=== PATIENT | male | born 1985 | race Caucasian/White ===

== ENCOUNTER 2017-10-12 08:13 | Emergency (ER) | payer SELFPAY ==
--- NOTE | 2017-10-12 08:33 | ER ---
Nurse's Notes [facility] Name: Darvin Cardenas Age: 31 yrs Sex: Male : 1985 Arrival Date: 10/12/2017 Time: 08:15 Bed Waiting Private MD: Mayra, None Diagnosis: Presentation: 10/12 08:19 Presenting complaint: registration reports that pt left after his mother signed him in, iw pt stated that he was fine and then started walking out of the dept. ED Course: 08:15 Patient arrived in ED. mr 08:15 None, None is Private Physician. mr Administered Medications: No medications were administered Outcome: 08:32 Eloped from waiting room, Time discovered patient gone: October 12, 2017 at 08:19 iw 08:33 Patient left the ED. iw Signatures: Eunice Chowdhury Irene, RN RN iw
== END 2017-10-12 08:33 | disposition left against medical advice (07) ==
LOC: ER 08:13
DX: Z53.21 Procedure and treatment not carried out due to patient leaving prior to being seen by health care provider (principal)
CPT/HCPCS: 99281

== ENCOUNTER 2018-12-17 11:38 | Emergency (ER) | payer SELFPAY ==
--- OUTSIDE RECORDS SUMMARY | 2018-12-17 11:41 | XMS REPORT | Continuity of Care Document ---
:1985 Author Organization [facility] Address [address] [place] [address] Phone Unavailable Care Team Providers Name Role Phone PHYSICIAN, NO Primary Care Physician Unavailable Insurance Providers Guarantor Leora Gomez Address [address] [place] [address] Email NONE Payer Self Pay Insurance Subscriber's Name Leora Gomez Relationship Self / Same As Patient Group Number NA Group Name NA Advance Directives Directive Response Recorded Date/Time Advance Directive on File No 03/09/18 6:40pm Name of Surrogate/Decision Maker N/A 03/09/18 11:14pm Patient/Family Given Education N - PT UNABLE TO SIGN...AG 03/09/18 11:14pm Material R/T Directives? Problems No problem information available. Medications No medication information available. Social History Social History Problem Response Recorded Date/Time Onset Date Status Hx Physical Abuse No 03/09/2018 6:40pm Not Applicable Not Applicable Smoking Status Start Date Stop Date Current every day smoker Hospital Discharge Instructions No hospital discharge instruction information available. Plan of Care Discharge Date 03/10/18 1:50pm Forms Provided Portal Welcome Letter Prescriptions See Medication Section Referrals NO PHYSICIAN Functional Status No functional status information available. Allergies, Adverse Reactions, Alerts Allergen Type Severity Reaction Status Last Updated Penicillins ([id number]) Allergy Unknown Active 03/10/18 Immunizations No immunization information available. Vital Signs Acute Vital Signs Vital Response Date/Time Blood Pressure 140/89 mm Hg 03/10/2018 10:51am Pulse Pulse Rate (adult) 89 beats per minute (60 - 100) 03/10/2018 10:51am Respiratory Rate 18 breaths per minute (10 - 24) 03/10/2018 10:51am Temperature Source Tympanic 03/10/2018 10:51am Height 6 ft 4 in 03/09/2018 6:40pm Weight 180 lb 03/09/2018 6:40pm Body Mass Index 21.9 kg/m^2 03/09/2018 6:40pm Results Laboratory Results Test Name Result Units Flags Reference Collection Result Comments Date/Time Date/Time White Blood 5.6 K/ul 4.0-12.3 03/09/2018 03/09/2018 Count 7:20pm 7:36pm Red Blood 5.44 M/ul 3.80-5.80 03/09/2018 03/09/2018 Count 7:20pm 7:36pm Hemoglobin 16.8 g/dl 11.67-17.2 03/09/2018 03/09/2018 2 7:20pm 7:36pm Hematocrit 50.3 % 35.0-51.0 03/09/2018 03/09/2018 7:20pm 7:36pm Mean 92.5 fl 78-96 03/09/2018 03/09/2018 Corpuscular 7:20pm 7:36pm Volume Mean 30.9 pg 26.8-33.4 03/09/2018 03/09/2018 Corpuscular 7:20pm 7:36pm Hemoglobin Mean 33.4 g/dl 32.3-36.7 03/09/2018 03/09/2018 Corpuscular 7:20pm 7:36pm Hemoglobin Concent Red Cell 12.0 % 11.6-15.4 03/09/2018 03/09/2018 Distribution 7:20pm 7:36pm Width Platelet Count 240 K/ul 115-328 03/09/2018 03/09/2018 7:20pm 7:36pm Mean Platelet 6.6 fl L 8.4-11.8 03/09/2018 03/09/2018 Volume 7:20pm 7:36pm Neutrophils 46.8 % 44.7-82.4 03/09/2018 03/09/2018 (%) (Auto) 7:20pm 7:36pm Lymphocytes 43.1 % 10.0-50.0 03/09/2018 03/09/2018 (%) (Auto) 7:20pm 7:36pm Monocytes (%) 7.1 % 3.9-13.4 03/09/2018 03/09/2018 (Auto) 7:20pm 7:36pm Eosinophils 2.2 % 0.0-6.43 03/09/2018 03/09/2018 (%) (Auto) 7:20pm 7:36pm Basophils (%) 0.8 % H 0.0-0.72 03/09/2018 03/09/2018 (Auto) 7:20pm 7:36pm Prothrombin 10.3 SECONDS 10.3-12.3 03/09/2018 03/09/2018 Time 7:20pm 7:40pm THERAPEUTIC LEVEL: 1.5 to 1.9 times normal range of PT Prothromb Time 0.93 03/09/2018 03/09/2018 International 7:20pm 7:40pm Recommended therapeutic range for patients receiving Ratio warfarin (coumadin) therapy: INR is 2.0 to 3.0 Recommended range for patients with mechanical prosthetic heart valves: INR is 2.5 to 3.5 Activated 25.1 SECONDS 22.5-37.0 03/09/2018 03/09/2018 Partial 7:20pm 7:40pm Thromboplast Time Urine Color COLORLESS 03/09/2018 03/09/2018 9:00pm 9:17pm Urine CLEAR CLEAR 03/09/2018 03/09/2018 Appearance 9:00pm 9:17pm Urine Glucose NEGATIVE NEGATIVE 03/09/2018 03/09/2018 9:00pm 9:17pm Urine NEGATIVE NEGATIVE 03/09/2018 03/09/2018 Bilirubin 9:00pm 9:17pm Urine Ketones NEGATIVE NEGATIVE 03/09/2018 03/09/2018 9:00pm 9:17pm Urine Specific 1.005 1.003-1.03 03/09/2018 03/09/2018 [place] 0 9:00pm 9:17pm Urine Blood NEGATIVE NEGATIVE 03/09/2018 03/09/2018 9:00pm 9:17pm Urine pH 7.000 5-9 03/09/2018 03/09/2018 9:00pm 9:17pm Urine Protein NEGATIVE NEGATIVE 03/09/2018 03/09/2018 9:00pm 9:17pm Urine NORMAL mg/dL 0.2-1.0 03/09/2018 03/09/2018 Urobilinogen 9:00pm 9:17pm Urine Nitrate NEGATIVE NEGATIVE 03/09/2018 03/09/2018 9:00pm 9:17pm Urine NEGATIVE NEGATIVE 03/09/2018 03/09/2018 Leukocyte 9:00pm 9:17pm Esterase Urine RBC <1 /hpf 0-5 03/09/2018 03/09/2018 9:00pm 9:17pm Urine WBC <1 /hpf 0-5 03/09/2018 03/09/2018 9:00pm 9:17pm Urine <1 /hpf 0-5 03/09/2018 03/09/2018 Epithelial 9:00pm 9:17pm Cells Urine Bacteria None /hpf None 03/09/2018 03/09/2018 Detected Detect 9:00pm 9:17pm Urine Casts None /lpf None 03/09/2018 03/09/2018 Detected Detect 9:00pm 9:17pm Urine Culture NO 03/09/2018 03/09/2018 Reflexed 9:00pm 9:17pm Random Glucose 101 mg/dL 74-106 03/09/2018 03/09/2018 7:20pm 7:45pm Blood Urea 3 mg/dL L 11-0703/09/2018 03/09/2018 Nitrogen 7:20pm 7:45pm Serum 285 280-300 03/09/2018 03/09/2018 Osmolality 7:20pm 7:45pm Creatinine 0.8 mg/dL 0.70-1.20 03/09/2018 03/09/2018 7:20pm 7:45pm Glomerular > 60.00 03/09/2018 03/09/2018 GFR RESULTS ARE REPORTED IN mL/min/1.73m2. Filtration 7:20pm 7:45pm Rate Calc Normal GFR: >60mL/min Moderately decreased GFR: 30-59 mL/min Severely decreased GFR: 15-29 mL/min Kidney Failure (or Dialysis): <15 mL/min The calculated eGFR is not valid for patients younger than 18 years or older than 75 years. BUN/Creatinine 3.8 L 05-0903/09/2018 03/09/2018 Ratio 7:20pm 7:45pm Sodium Level 145 mmol/L 135-145 03/09/2018 03/09/2018 7:20pm 7:45pm Potassium 4.0 mmol/L 3.5-5.2 03/09/2018 03/09/2018 Level 7:20pm 7:45pm Chloride Level 104 mmol/L 98-108 03/09/2018 03/09/2018 7:20pm 7:45pm Carbon Dioxide 25 mmol/L 21-32 03/09/2018 03/09/2018 Level 7:20pm 7:45pm Anion Gap 20.0 mEq/L 12-03/09/2018 03/09/2018 7:20pm 7:45pm Calcium Level 9.1 mg/dL 8.6-10.0 03/09/2018 03/09/2018 7:20pm 7:45pm Total Protein 7.8 g/dL 6.6-8.7 03/09/2018 03/09/2018 7:20pm 7:45pm Albumin 4.7 g/dL 3.5-5.2 03/09/2018 03/09/2018 7:20pm 7:45pm Globulin 3.1 gm/dL 03/09/2018 03/09/2018 7:20pm 7:45pm Albumin/Globul 1.5 >1.0 03/09/2018 03/09/2018 in Ratio 7:20pm 7:45pm Total 0.4 mg/dL 0.0-1.2 03/09/2018 03/09/2018 Bilirubin 7:20pm 7:45pm Aspartate 29 U/L 15-40 03/09/2018 03/09/2018 Amino Transf 7:20pm 7:45pm (AST/SGOT) Alanine 21 U/L 0-41 03/09/2018 03/09/2018 Aminotransfera 7:20pm 7:45pm se (ALT/SGPT) Total Alkaline 93 U/L 40-130 03/09/2018 03/09/2018 Phosphatase 7:20pm 7:45pm Urine NEGATIVE NG/ML NEGATIVE 03/09/2018 03/09/2018 Amphetamines 9:00pm 9:30pm Screen Urine NEGATIVE NG/ML NEGATIVE 03/09/2018 03/09/2018 Barbiturates, 9:00pm 9:30pm Quantitative Urine NEGATIVE NG/ML NEGATIVE 03/09/2018 03/09/2018 Benzodiazepine 9:00pm 9:30pm s Screen Urine NEGATIVE NG/ML NEGATIVE 03/09/2018 03/09/2018 Cannabinoids 9:00pm 9:30pm Urine Cocaine NEGATIVE NG/ML NEGATIVE 03/09/2018 03/09/2018 Metabolite 9:00pm 9:30pm Urine Opiates NEGATIVE NG/ML NEGATIVE 03/09/2018 03/09/2018 Screen 9:00pm 9:30pm Urine NEGATIVE NG/ML NEGATIVE 03/09/2018 03/09/2018 Phencyclidine 9:00pm 9:30pm (PCP) Level Methadone NEGATIVE NG/ML NEGATIVE 03/09/2018 03/09/2018 Level 9:00pm 9:30pm Propoxyphene NEGATIVE NG/ML NEGATIVE 03/09/2018 03/09/2018 Level 9:00pm 9:30pm Oxycodone NEGATIVE NG/ML NEGATIVE 03/09/2018 03/09/2018 Level 9:00pm 9:30pm Urine Drug . 03/09/2018 03/09/2018 DRUGS OF ABUSE CUT-OFF VALUES Screen Note 9:00pm 9:05pm AMPHETAMINES (AMPH) NEGATIVE (CUT OFF CONC: 1000 NG/ML) BARBITUATES (IGOR) NEGATIVE (CUT OFF CONC: 200 NG/ML) BENZODIAZEPINES (MANNY) NEGATIVE (CUT OFF CONC: 300 NG/ML) CANNABINOIDS (THC) NEGATIVE (CUT OFF CONC: 50 NG/ML) COCAINE (MIKO) NEGATIVE (CUT OFF CONC: 300 NG/ML) OPIATES (OPI) NEGATIVE (CUT OFF CONC: 300 NG/ML) PHENCYCLIDINE (PCP) NEGATIVE (CUT OFF CONC: 25 NG/ML)METHADONE (MTD) NEGATIVE (CUT OFF CONC: 300 NG/ML) PROPOXYPHENE (PPX) NEGATIVE (CUT OFF CONC: 300 NG/ML) OXYCODONE (OXY) NEGATIVE (CUT OFF CONC: 100 NG/ML) ANY POSITIVE RESULT IS UNCONFIRMED. CONFIRMATION AND QUANTITATION AVAILABLE UPON MD REQUEST. Salicylates < 0.4 mg/dl L 2.8-20.0 03/10/2018 03/10/2018 Level 12:05am 12:34am Acetaminophen < 5.0 ug/mL L 10.0-30.0 03/10/2018 03/10/2018 Level 12:05am 12:34am Ethyl Alcohol 59.3 mg/dL H 0.0-10.1 03/10/2018 03/10/2018 Level 6:34am 6:53am Procedures Procedure Status Date Provider(s) X-ray of chest, single view Completed 03/09/18 CHEL MCGHEE [employer] Encounters Encounter Location Arrival/Admit Date Discharge/Depart Date Attending Provider Departed Jose Eduardo 03/09/18 6:40pm 03/10/18 1:50pm Loki MEADOWS Emergency Room [facility]
[2018-12-17] MEDS ORDERED: DIAZEPAM 10 MG/2 ML INJ SYRINGE ONE (12:13)
[2018-12-17] MEDS ORDERED: NA CHLORIDE 0.9% 1,000 ML ONE (12:13)
[2018-12-17] MEDS ORDERED: ONDANSETRON 4 MG/2 ML VIAL ONE (12:14)
[2018-12-17 12:15] LABS: Absolute Lymphocytes (CBC) 2.1 K/uL (0.7-4.9); Basophils % 0.4 % (0-1.3); Hematocrit 48.2 % (39.6-49.0); Lymphocytes % 20.6 % (15.3-44.8); MPV 9.2 fL (7.6-11.3); RBC Red Blood Cell Count 5.27 M/uL (4.33-5.43)
[2018-12-17 12:42] LABS: Potassium 3.4 mmol/L (3.5-5.1)
--- NOTE | 2018-12-17 13:18 | RAD REPORT ---
EXAM DESCRIPTION: CTAbdomen Pelvis W Contrast - 12/17/2018 1:06 pm CLINICAL HISTORY: Abdominal pain. vomiting, abd pain COMPARISON: No comparisons TECHNIQUE: Biphasic CT imaging of the abdomen and pelvis was performed with 100 ml non-ionic IV cont rast. All CT scans are performed using dose optimization technique as appropriate and may include automated exposure control or mA/KV adjustment according to patient size. FINDINGS: The lung bases are clear. The liver, spleen, pancreas, adrenal glands and kidneys are within normal limits. Small cortical cyst left kidney, benign in appearance. No bowel obstruction, free air, free fluid or abscess. The appendix is normal. No evidence of signi ficant lymphadenopathy. No suspicious bony findings. IMPRESSION: No acute intra-abdominal or pelvic finding.
[2018-12-17] MEDS ORDERED: FOLIC ACID 1 MG, THIAMINE HCL 100 MG, MULTIVITAMINS INJ 10 ML in NA CHLORIDE 0.9% 1,000 ML IV ONE (13:30)
[2018-12-17] MEDS ORDERED: POTASSIUM CL SA 10 MEQ TAB PO ONE (13:33)
--- NOTE | 2018-12-17 13:44 | ER ---
Nurse's Notes [facility] Name: Darvin Cardenas Age: 33 yrs Sex: Male : 1985 Arrival Date: 12/17/2018 Time: 11:39 Bed 3 Private MD: None, None Diagnosis: Vomiting, unspecified;Alcohol dependence with withdrawal, unspecified Presentation: 12/17 11:51 Presenting complaint: Patient states: "I'm detoxing off alcohol", pt states he's been iw on a heavy binge X 1 week, has been drinking 4 Lokos, initially stated he stopped drinking a day ago, but then stated he had a drink today, pt actively vomiting, denies chronic alcohol use, denies drug use. Transition of care: patient was not received from another setting of care. Onset of symptoms was December 17, 2018. Risk Assessment: Do you want to hurt yourself or someone else? Patient reports no desire to harm self or others. Initial Sepsis Screen: Does the patient meet any 2 criteria? No. Patient's initial sepsis screen is negative. Does the patient have a suspected source of infection? No. Patient's initial sepsis screen is negative. Care prior to arrival: None. 11:51 Method Of Arrival: Wheelchair iw 11:51 Acuity: ARTHUR 3 iw Historical: - Allergies: 11:41 PENICILLINS; tw2 - Immunization history:: Adult Immunizations unknown. - Ebola Screening: : Patient denies travel to an Ebola-affected area in the 21 days before illness onset. - Social history:: Smoking status: Patient uses tobacco products, smokes one pack cigarettes per day. Patient uses alcohol, on a daily basis. patient/guardian reports recent binge of alcohol consumption. - Family history:: not pertinent. - Hospitalizations: : No recent hospitalization is reported. Screenin:41 Abuse screen: Denies threats or abuse. Nutritional screening: No deficits noted. tw2 Tuberculosis screening: No symptoms or risk factors identified. Fall Risk None identified. Assessment: 11:42 General: Appears in no apparent distress. slender, Behavior is anxious. Pain: Denies tw2 pain. Neuro: Level of Consciousness is awake, alert, obeys commands, Oriented to person, place, time, situation. Cardiovascular: Heart tones S1 S2 Patient's skin is warm and dry. Respiratory: Airway is patent Respiratory effort is even, unlabored, Respiratory pattern is regular, symmetrical, Breath sounds are clear bilaterally. GI: Reports nausea. : No signs and/or symptoms were reported regarding the genitourinary system. EENT: No signs and/or symptoms were reported regarding the EENT system. Derm: No signs and/or symptoms reported regarding the dermatologic system. Musculoskeletal: Range of motion: intact in all extremities. 12:35 Reassessment: Patient appears in no apparent distress at this time. No changes from tw2 previously documented assessment. Patient and/or family updated on plan of care and expected duration. Pain level reassessed. Vital Signs: 11:59 BP 124 / 84; Pulse 76; Resp 16; Temp 98.0(O); Pulse Ox 98% on R/A; iw 12:05 Weight 54.43 kg; Height 6 ft. 0 in. (182.88 cm) (R); tw2 12:34 BP 122 / 80; Pulse 82; Resp 12; Pulse Ox 99% on R/A; tw2 13:31 BP 118 / 89; Pulse 60; Resp 17; Pulse Ox 100% on R/A; sg 14:24 BP 115 / 78; Pulse 57; Resp 17; Pulse Ox 100% on R/A; sg 15:01 BP 106 / 72; Pulse 67; Resp 15; Temp 98; Pulse Ox 99% on R/A; rv 12:05 Body Mass Index 16.27 (54.43 kg, 182.88 cm) tw2 ED Course: 11:39 Patient arrived in ED. dp 11:40 None, None is Private Physician. dp 11:41 Nancy Choudhary RN is Primary Nurse. tw2 11:42 Andrea Avila MD is Attending Physician. rn 11:42 Placed in gown. Bed in low position. desk monitor on. Pulse ox on. NIBP on. tw2 11:53 Triage completed. iw 12:03 Arm band placed on. tw2 12:45 Warm blanket given. Verbal reassurance given. jp3 12:45 EKG done, by ED staff, reviewed by Andrea Avila MD. jp3 12:45 Patient maintains SpO2 saturation greater than 95% on room air. jp3 13:09 CT Abd/Pelvis - IV Contrast Only In Process Unspecified. EDMS 13:54 Report given to ALEC Garcia. tw2 15:02 No provider procedures requiring assistance completed. IV discontinued, intact, rv bleeding controlled, No redness/swelling at site. Pressure dressing applied. Administered Medications: 12:00 Drug: NS 0.9% 1000 ml Route: IV; Rate: 1000 ml; Site: right forearm; tw2 13:12 Follow up: Response: No adverse reaction; IV Status: Completed infusion; IV Intake: tw2 1000ml 12:00 Drug: Zofran 4 mg Route: IVP; Site: right forearm; tw2 12:15 Follow up: Response: No adverse reaction tw2 12:03 Drug: Valium 10 mg Route: IVP; Site: right forearm; tw2 13:12 Follow up: Response: No adverse reaction; Anxiety decreased tw2 12:50 Drug: Phenergan 12.5 mg Route: IVP; Site: right antecubital; tw2 15:02 Follow up: Response: No adverse reaction; Marked relief of symptoms; Nausea is decreasedrv 13:16 Drug: Potassium Chloride 40 mEq Route: PO; tw2 13:16 Follow up: Response: No adverse reaction tw2 13:31 Drug: Banana Bag - (NS 0.9% 1000 ml, foLIC Acid 1 mg, Thiamine 100 mg, Multivitamin 1 sg amp) Route: IV; Rate: calculated rate; Site: right forearm; 15:02 Follow up: IV Status: Completed infusion rv Intake: 13:12 IV: 1000ml; Total: 1000ml. tw2 Outcome: 13:42 Discharge ordered by . rn 15:03 Discharged to home ambulatory. rv 15:03 Condition: improved 15:03 Discharge instructions given to patient, Instructed on discharge instructions, follow up and referral plans. medication usage, instructed patient to call a ride upon discharge. patient taken to patient's lobby/waiting area. Demonstrated understanding of instructions, follow-up care, medications, Prescriptions given X 1. 15:04 Patient left the ED. rv Signatures: Dispatcher [employer] EDCj Almaraz RN RN sg Williams, Irene, RN RN iw Nieto, Roman, MD MD rn Wise, Tara, RN RN tw2 Uziel Butler RN RN rv Kannan Villela jp3 Jean Carlos Mak
--- NOTE | 2018-12-17 13:44 | EDPHYS ---
Physician Documentation [facility] Name: Darvin Cardenas Age: 33 yrs Sex: Male : 1985 Arrival Date: 12/17/2018 Time: 11:39 Bed 3 Private MD: None, None ED Physician Andrea Avila HPI: 12/17 12:25 This 33 yrs old Male presents to ER via Wheelchair with complaints of Alcohol rn Withdrawal. 12:25 The patient presents to the emergency department with nausea, vomiting. Onset: The rn symptoms/episode began/occurred at an unknown time. Possible causes: unknown. The symptoms are aggravated by nothing. The symptoms are alleviated by nothing. Associated signs and symptoms: Pertinent positives: nausea, vomiting, Pertinent negatives: fever, GI bleeding. Severity of symptoms: At their worst the symptoms were moderate in the emergency department the symptoms are unchanged. The patient has not experienced similar symptoms in the past. Reports thinks is withdrawing from ETOH, reports was heavy drinker, was sober, then went on 2 week binge, last drink today after felt bad but didn't help, last full day of drinking was about 1 week ago, also used cocaine yesterday, comes in for nausea/vomiting/weakness.. Historical: - Allergies: 11:41 PENICILLINS; tw2 - Immunization history:: Adult Immunizations unknown. - Ebola Screening: : Patient denies travel to an Ebola-affected area in the 21 days before illness onset. - Social history:: Smoking status: Patient uses tobacco products, smokes one pack cigarettes per day. Patient uses alcohol, on a daily basis. patient/guardian reports recent binge of alcohol consumption. - Family history:: not pertinent. - Hospitalizations: : No recent hospitalization is reported. ROS: 12:27 Constitutional: Negative for fever, chills, and weight loss, Eyes: Negative for injury, rn pain, redness, and discharge, Neck: Negative for injury, pain, and swelling, Cardiovascular: Negative for chest pain, palpitations, and edema, Respiratory: Negative for shortness of breath, cough, wheezing, and pleuritic chest pain, Abdomen/GI: Negative for diarrhea, and constipation, MS/Extremity: Negative for injury and deformity, Skin: Negative for injury, rash, and discoloration, Neuro: Negative for headache, numbness, tingling, and seizure. Exam: 12:27 Constitutional: This is a well developed, well nourished patient who is awake, alert, rn wretching Head/Face: Normocephalic, atraumatic. Eyes: Pupils equal round and reactive to light, extra-ocular motions intact. Lids and lashes normal. Conjunctiva and sclera are non-icteric and not injected. Cornea within normal limits. Periorbital areas with no swelling, redness, or edema. Neck: Trachea midline, no thyromegaly or masses palpated, and no cervical lymphadenopathy. Supple, full range of motion without nuchal rigidity, or vertebral point tenderness. No Meningismus. Cardiovascular: Regular rate and rhythm with a normal S1 and S2. No gallops, murmurs, or rubs. Normal PMI, no JVD. No pulse deficits. Respiratory: Lungs have equal breath sounds bilaterally, clear to auscultation and percussion. No rales, rhonchi or wheezes noted. No increased work of breathing, no retractions or nasal flaring. Abdomen/GI: soft, non-tender MS/ Extremity: Pulses equal, no cyanosis. Neurovascular intact. Full, normal range of motion. Equal circumference. Neuro: Awake and alert, GCS 15, oriented to person, place, time, and situation. Cranial nerves II-XII grossly intact. Motor strength 5/5 in all extremities. Sensory grossly intact. Cerebellar exam normal. 13:24 ECG was reviewed by the Attending Physician. rn Vital Signs: 11:59 BP 124 / 84; Pulse 76; Resp 16; Temp 98.0(O); Pulse Ox 98% on R/A; iw 12:05 Weight 54.43 kg; Height 6 ft. 0 in. (182.88 cm) (R); tw2 12:34 BP 122 / 80; Pulse 82; Resp 12; Pulse Ox 99% on R/A; tw2 13:31 BP 118 / 89; Pulse 60; Resp 17; Pulse Ox 100% on R/A; sg 14:24 BP 115 / 78; Pulse 57; Resp 17; Pulse Ox 100% on R/A; sg 15:01 BP 106 / 72; Pulse 67; Resp 15; Temp 98; Pulse Ox 99% on R/A; rv 12:05 Body Mass Index 16.27 (54.43 kg, 182.88 cm) tw2 MDM: 11:42 Patient medically screened. rn 13:40 Differential diagnosis: viral gastroenteritis, gastroenteritis, ETOH withdrawal, drug rn use, dehydration. Data reviewed: vital signs, nurses notes, lab test result(s), EKG, radiologic studies, CT scan, and as a result, I will discharge patient. Counseling: I had a detailed discussion with the patient and/or guardian regarding: the historical points, exam findings, and any diagnostic results supporting the discharge/admit diagnosis, lab results, radiology results, the need for outpatient follow up, to return to the emergency department if symptoms worsen or persist or if there are any questions or concerns that arise at home. Response to treatment: the patient's symptoms have markedly improved after treatment, and as a result, I will discharge patient. Special discussion: I discussed with the patient/guardian in detail that at this point there is no indication for admission to the hospital. It is understood, however, that if the symptoms persist or worsen the patient needs to return immediately for re-evaluation. ED course: Patient with normal vitals, neg ct abdomen, markedly improved with fluids and valium, no acute findings, ETOH actually > 300, plans on quitting, will prescribe librium and dc home with recommendations to slowly wean himself off ETOH or check into detox facility, also recommended to stop using stimulant drugs like cocaine when detox. Patient sitting upright, using phone, normal neuro exam. . 12/17 11:50 Order name: CBC with Diff; Complete Time: 13: rn 12/17 11:50 Order name: Basic Metabolic Panel; Complete Time: 13: rn 12/17 11:50 Order name: ETOH Level; Complete Time: 13: rn 12/17 11:50 Order name: Urine Drug Screen rn 12/17 11:51 Order name: CT Abd/Pelvis - IV Contrast Only; Complete Time: 13:23 rn 12/17 11:50 Order name: IV Start; Complete Time: 11:53 rn 12/17 11:50 Order name: EKG - Nurse/Tech; Complete Time: 12:45 rn 12/17 11:50 Order name: EKG; Complete Time: 11:53 rn EC:24 Rate is 76 beats/min. Rhythm is regular. QRS [place] is Normal. OR interval is normal. QRS rn interval is normal. QT interval is normal. No Q waves. T waves are Normal. No ST changes noted. Clinical impression: Normal ECG. Interpreted by me. Reviewed by me. Administered Medications: 12:00 Drug: NS 0.9% 1000 ml Route: IV; Rate: 1000 ml; Site: right forearm; tw2 13:12 Follow up: Response: No adverse reaction; IV Status: Completed infusion; IV Intake: tw2 1000ml 12:00 Drug: Zofran 4 mg Route: IVP; Site: right forearm; tw2 12:15 Follow up: Response: No adverse reaction tw2 12:03 Drug: Valium 10 mg Route: IVP; Site: right forearm; tw2 13:12 Follow up: Response: No adverse reaction; Anxiety decreased tw2 12:50 Drug: Phenergan 12.5 mg Route: IVP; Site: right antecubital; tw2 15:02 Follow up: Response: No adverse reaction; Marked relief of symptoms; Nausea is decreasedrv 13:16 Drug: Potassium Chloride 40 mEq Route: PO; tw2 13:16 Follow up: Response: No adverse reaction tw2 13:31 Drug: Banana Bag - (NS 0.9% 1000 ml, foLIC Acid 1 mg, Thiamine 100 mg, Multivitamin 1 sg amp) Route: IV; Rate: calculated rate; Site: right forearm; 15:02 Follow up: IV Status: Completed infusion rv Disposition: 12/17/18 13:42 Discharged to Home. Impression: Vomiting, unspecified, Alcohol dependence with withdrawal, unspecified. - Condition is Stable. - Discharge Instructions: Finding Treatment for Addiction, Alcohol Withdrawal. - Prescriptions for Zofran ODT 4 mg Oral tablet,disintegrating - place 1 tablet by TRANSLINGUAL route every 8 hours As needed; 20 tablet. Valium 2 mg Oral Tablet - take 1 tablet by ORAL route every 8 hours As needed; 15 tablet. - Medication Reconciliation Form, Thank You Letter, Antibiotic Education, Prescription Opioid Use form. - Follow up: Private Physician; When: As needed; Reason: Recheck today's complaints, Re-evaluation by your physician. - Problem is new. - Symptoms have improved. Signatures: Dispatcher [employer] EDMS Cj Bai RN RN sg Andrea Avila MD MD rn Wise, Tara, RN RN tw2 Uziel Butler RN RN rv Corrections: (The following items were deleted from the chart) 15:04 13:42 12/17/2018 13:42 Discharged to Home. Impression: Vomiting, unspecified; Alcohol rv dependence with withdrawal, unspecified. Condition is Stable. Forms are Medication Reconciliation Form, Thank You Letter, Antibiotic Education, Prescription Opioid Use. Follow up: Private Physician; When: As needed; Reason: Recheck today's complaints, Re-evaluation by your physician. Problem is new. Symptoms have improved. rn
[2018-12-17 13:55] LABS: Barbiturates NEGATIVE (NEGATIVE); Benzodiazepines NEGATIVE (NEGATIVE); Cocaine POSITIVE (NEGATIVE); METHAMPHETAM NEGATIVE (NEGATIVE); Methadone NEGATIVE (NEGATIVE); Opiates NEGATIVE (NEGATIVE); Phencyclidine NEGATIVE (NEGATIVE); THC Cannibis POSITIVE (NEGATIVE)
[2018-12-17] MEDS ORDERED: PROMETHAZINE 25 MG/ML VIAL ONE (14:04)
--- NOTE | 2018-12-18 10:52 | EKG ---
Test Date: 2018-12-17 Test Time: 12:44:59 Channeling Machine Runner: KYLIE MEASUREMENT RESULTS: Intervals: Rate: 76 ND: 142 QRSD: 106 QT: 420 QTc: 472 Anderson: P: 82 ND: 142 QRS: 80 T: 77 INTERPRETIVE STATEMENTS: Normal sinus rhythm Normal ECG Compared to ECG 07/18/2016 15:51:04 Sinus tachycardia no longer present Electronically Signed On 12-18-18 10:51:22 CDT by Andrea Langley
== END 2018-12-17 15:04 | disposition home or self-care (01) ==
LOC: ER 11:38
DX: F10.239 Alcohol dependence with withdrawal, unspecified (principal); R11.2 Nausea with vomiting, unspecified; Z88.0 Allergy status to penicillin; F17.210 Nicotine dependence, cigarettes, uncomplicated
CPT/HCPCS: 36415; 74177; 80048; 80307; 80320; 85025; 93005; 96361; 96365; 96375; 99285; J2405; J2550; J3360; J3411; J7030; Q9967

== ENCOUNTER 2019-02-01 19:13 | Emergency (ER) | payer SELFPAY ==
[2019-02-01 20:11] LABS: Absolute Lymphocytes (CBC) 1.9 K/uL (0.7-4.9); Basophils % 0.9 % (0-1.3); Hematocrit 39.2 % (39.6-49.0); Lymphocytes % 34.1 % (15.3-44.8); MPV 8.8 fL (7.6-11.3); RBC Red Blood Cell Count 4.32 M/uL (4.33-5.43)
[2019-02-01 20:50] LABS: BUN Blood Urea Nitrogen 19 mg/dL (7-18); Bicarbonate 28 mmol/L (21-32); Glucose Level 95 mg/dL (74-106); Potassium 3.9 mmol/L (3.5-5.1); Sodium Level 141 mmol/L (136-145)
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
[2019-02-01] MEDS ORDERED: NA CHLORIDE 0.9% 1,000 ML ONE (22:46)
[2019-02-01 23:55] LABS: Barbiturates NEGATIVE (NEGATIVE); Benzodiazepines POSITIVE (NEGATIVE); Cocaine POSITIVE (NEGATIVE); METHAMPHETAM POSITIVE (NEGATIVE); Methadone NEGATIVE (NEGATIVE); Opiates POSITIVE (NEGATIVE); Phencyclidine NEGATIVE (NEGATIVE); THC Cannibis POSITIVE (NEGATIVE)
[2019-02-02 01:23] LABS: Urine Blood NEGATIVE (NEG); Urine Glucose NEGATIVE (NEG); Urine Protein TRACE (NEG); Urine Specific Gravity >1.030 (1.005-1.030)
[2019-02-02 01:59] VITALS: TEMP 98
[2019-02-02 02:01] VITALS: BP 116/87; O2SAT 98
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
== END 2019-02-02 01:10 | disposition home or self-care (01) ==
LOC: ER 19:13
DX: T14.8XXA Other injury of unspecified body region, initial encounter (principal); V47.5XXA Car driver injured in collision with fixed or stationary object in traffic accident, initial encounter; F41.9 Anxiety disorder, unspecified; F17.210 Nicotine dependence, cigarettes, uncomplicated; Z88.0 Allergy status to penicillin
CPT/HCPCS: 36415; 70450; 71260; 72125; 74177; 80048; 80307; 80320; 81003; 85025; 86850; 86900; 86901; 96360; 99285; J7030; Q9967

== ENCOUNTER 2022-03-13 18:00 | Emergency (ER) | payer SELFPAY ==
--- OUTSIDE RECORDS SUMMARY | 2022-03-13 18:04 | XMS REPORT | Continuity of Care Document ---
:1985 Author Organization [facility] t Address [address] [place] [address] Care Team Providers Name Role Phone Unavailable Unavailable Unavailable Payers Payer Name Policy Type Policy Number Effective Date Expiration Date S ource Problems This patient has no known problems. Allergies, Adverse Reactions, Alerts This patient has no known allergies or adverse reactions. Medications This patient has no known medications. Procedures This patient has no known procedures. Encounters Start End Encounter Admission Attending Care Care Encounter Source Date/Time Date/Time Type Type Clinicians Facility Department ID 2022-02-03 Inpatient MOISES DE LEON [id number] [place] 08:51:48 [id number] [place] 2022-01-30 Inpatient TEXRADHAMES BACKANA [id number] [place] 10:40:02 [id number] [place] 2022-01-21 Inpatient TEXRADHAMES BACKANA [id number] [place] 18:09:22 [id number] [place] 2022-01-18 Inpatient TEXRADHAMES BACKANA [id number] [place] 17:04:52 [id number] [place] 2022-01-13 Inpatient TEXRADHAMES BACKANA [id number] [place] 10:49:51 [id number] [place] 2022-01-11 Inpatient TEXRADHAMES DE LEON [id number] [place] 23:40:[id number] [place] [address] 2022-01-11 [facility] [id number] [facility] 11:01:23 [id number] [place] Results This patient has no known results.
[2022-03-13] MEDS ORDERED: LORazepam 2 MG/ML VIAL ONE ×4 (19:13→23:25)
[2022-03-13] MEDS ORDERED: NA CHLORIDE 0.9% 500 ML ONE (19:14)
[2022-03-13 19:31] LABS: Absolute Lymphocytes (CBC) 2.5 K/uL (0.7-4.9); Hematocrit 45.3 % (39.6-49.0); Lymphocytes % 45.8 % (15.3-44.8); MCV 90.4 fL (80-100); MPV 8.6 fL (7.6-11.3); RBC Red Blood Cell Count 5.02 M/uL (4.33-5.43)
[2022-03-13 19:39] LABS: Protime INR 0.83
[2022-03-13 19:49] LABS: ALT/SGPT 28 U/L (12-78); AST/SGOT 26 U/L (15-37); Albumin 4.3 g/dL (3.4-5.0); Alkaline Phosphatase 85 U/L (45-117); BUN Blood Urea Nitrogen 13 mg/dL (7-18); Bicarbonate 24 mmol/L (21-32); Bilirubin Direct 0.1 mg/dL (0-0.2); Bilirubin Total 0.3 mg/dL (0.2-1.0); Glomerular Filtration Rate 80 ml/min (=/>90); Glucose Level 119 mg/dL (74-106); Potassium 3.7 mmol/L (3.5-5.1); Protein, Total 8.6 g/dL (6.4-8.2); Sodium Level 141 mmol/L (136-145)
[2022-03-13 19:53] LABS: SARS-CoV-2 Antigen Rapid Res Negative (Negative)
[2022-03-13] MEDS ORDERED: NA CHLORIDE 0.9% 1,000 ML ONE (20:40)
[2022-03-13 22:02] LABS: Urine Blood Negative (Negative); Urine Glucose Negative (Negative); Urine Protein Negative (Negative); Urine Specific Gravity >=1.030 (1.005-1.030); Urine pH 5.5 (5.0-7.0)
[2022-03-13 22:21] LABS: Barbiturates NEGATIVE (NEGATIVE); Benzodiazepines NEGATIVE (NEGATIVE); Cocaine NEGATIVE (NEGATIVE); METHAMPHETAM NEGATIVE (NEGATIVE); Methadone NEGATIVE (NEGATIVE); Opiates NEGATIVE (NEGATIVE); Phencyclidine NEGATIVE (NEGATIVE); THC Cannibis POSITIVE (NEGATIVE)
--- NOTE | 2022-03-13 22:29 | ER ---
Nurse's Notes [facility] Name: Darvin Cardenas Age: 36 yrs Sex: Male : 1985 Arrival Date: 03/13/2022 Time: 18:03 Bed 19 Private MD: Diagnosis: Alcohol abuse with intoxication;Adverse effect of selective serotonin reuptake inhibitors, initial encounter;Adverse effect of phenothiazine antipsychotics and neuroleptics, initial encounter Presentation: 03/13 18:16 Chief complaint: Patient states: took Prozac unsure of dose, olanzapine 5 mg and vg1 mirtazapine 15 mg about an hour ago. Pt appears to be drowsy and stated has drank about two shots of liquor 'everclear'. Pt ADMITS TO SI, stating "im just tired of being here" POISON CONTROL CONTACTED- Spoke paulo Hernández, CASE # [id number]; stated precautions for seizures, hypotension, tachycardia, Respiratory depression, EKG changes- prolong QT, potassium and magnesium. Risk Assessment: Do you want to hurt yourself or someone else? Patient reports desire/thoughts of hurting themselves or someone else. Provider notified. Other: Self. Onset of symptoms was March 13, 2022. 18:16 Method Of Arrival: Ambulatory vg1 18:16 Acuity: ARTHUR 2 vg1 22:00 Coronavirus screen: At this time, the client does not indicate any symptoms associated vc1 with coronavirus-19. Ebola Screen: No symptoms or risks identified at this time. Initial Sepsis Screen: Does the patient have a suspected source of infection? No. Patient's initial sepsis screen is negative. 22:03 Initial Sepsis Screen: Does the patient meet any 2 criteria?. ll3 Triage Assessment: 18:31 General: Appears uncomfortable, slender, Behavior is cooperative, drowsy. Pain: Denies vg1 pain. Neuro: Rawls Agitation-Sedation Scale (RASS): -1 Drowsy Level of Consciousness is awake, alert, obeys commands, Oriented to person, place, time, situation, Pupils are Pupil Size: 2 mm. Cardiovascular: Patient's skin is warm and dry. Respiratory: Airway is patent Respiratory effort is even, shallow. Historical: - Allergies: 18:31 PENICILLINS; vg1 - PMHx: 18:31 Anxiety; vg1 - Immunization history:: unknown. - Social history:: Smoking status: Patient reports the use of cigarette tobacco products, Patient uses alcohol, street drugs, marijuana. Screenin:22 Abuse screen:. Nutritional screening: No deficits noted. Tuberculosis screening: No kl symptoms or risk factors identified. Fall Risk No fall in past 12 months (0 pts). Secondary diagnosis (15 points) AMS. IV access (20 points). Ambulatory Aid- None/Bed Rest/Nurse Assist (0 pts). Gait- Impaired (20 pts.). Mental Status- Overestimates/Forgets Limitations (15 pts.). Total King Fall Scale indicates High Risk Score (45 or more points). Fall prevention measures have been instituted. Side Rails Up X 2 Placed Close to Nursing Station Frequent Obs/Assessments Occuring. Assessment: 19:21 General: Appears distressed, well developed, well nourished, Behavior is anxious, kl restless, requires frequent redirection. Pain: Denies pain. Neuro: Level of Consciousness is awake, alert, obeys commands, Oriented to person, place, time, Speech is slurred, Pupils are pinpoint. Cardiovascular: Capillary refill < 3 seconds Rhythm is sinus tachycardia. Respiratory: No deficits noted. GI: No deficits noted. No signs and/or symptoms were reported involving the gastrointestinal system. : No deficits noted. No signs and/or symptoms were reported regarding the genitourinary system. EENT: No deficits noted. No signs and/or symptoms were reported regarding the EENT system. 20:06 Reassessment: Pt is asleep in bed and is sleeping but extremely restless, and thrashing ll3 around, charge nurse notided, no sitter at this time. Neuro: Rawls Agitation-Sedation Scale (RASS): -3 Moderate Sedation Level of Consciousness is lethargic, Oriented to none. 21:37 Reassessment: No changes from previously documented assessment. Patient and/or family ll3 updated on plan of care and expected duration. Pain level reassessed. 22:54 Reassessment: No changes from previously documented assessment. Patient and/or family ll3 updated on plan of care and expected duration. Pain level reassessed. 23:04 Reassessment: Reassessment: Spoke with [facility] at poison control, they recommend to give 1 ll3 gram of magnesium, to give some potassium if PTs is less than 4, to get more benzo's on board, and to repeat the EKG in 4 hours. 03/14 00:26 Reassessment: No changes from previously documented assessment. Patient and/or family ll3 updated on plan of care and expected duration. Pain level reassessed. Vital Signs: 03/13 18:16 BP 143 / 98; Pulse 113; Resp 15; Temp 98.1; Pulse Ox 97% on R/A; Weight 90.72 kg; vg1 Height 6 ft. 4 in. (193.04 cm); Pain 0/10; 19:22 BP 125 / 75; Pulse 131; Resp 18; Pulse Ox 98% on R/A; kl 20:06 BP 128 / 58; Pulse 158; Resp 28; Pulse Ox 96% on R/A; ll3 21:37 BP 120 / 65; Pulse 130; Resp 24; Pulse Ox 96% on R/A; ll3 22:54 BP 142 / 70; Pulse 140; Resp 25; Temp 98.6(TE); Pulse Ox 96% on R/A; ll3 03/14 00:26 BP 139 / 59; Pulse 147; Resp 27; Pulse Ox 96% on R/A; ll3 03/13 18:16 Body Mass Index 24.34 (90.72 kg, 193.04 cm) vg1 ED Course: 03/13 18:03 Patient arrived in ED. am2 18:11 Chau Arriaga is PHCP. jl9 18:11 Andrea Avila MD is Attending Physician. jl9 18:13 PHCP role handed off by Chau Arriaga cp 18:13 Tray Yee PA is PHCP. cp 18:30 Missed attempt(s): 22 gauge in left antecubital area. Bleeding controlled, band aid ll1 applied, catheter tip intact. 18:31 Triage completed. vg1 18:31 Arm band placed on. vg1 18:31 Missed attempt(s): 22 gauge in right upper arm. Bleeding controlled, band aid applied, ll1 catheter tip intact. 18:37 Eliecer Irizarry, ALEC is Primary Nurse. bp 19:06 Inserted saline lock: 20 gauge in right antecubital area, using aseptic technique. bp Blood collected. 19:24 Placed in gown. Bed in low position. Side rails up X2. Client placed on continuous kl cardiac and pulse oximetry monitoring. NIBP monitoring applied. 19:55 Primary Nurse role handed off by Eliecer Irizarry, ALEC wm 20:45 Placed nasal trumpet 28 Fr via right nare. ll3 21:03 Attending Physician role handed off by Andrea Avila MD ana maría 21:03 Tray Lynn MD is Attending Physician. ana maría 21:46 Celis cath inserted, using sterile technique, 16 Fr., by hi, balloon inflated, to ll3 gravity drainage, clamped. 22:00 Seizure precautions initiated. ll3 22:25 Edvin Lozoya MD is Hospitalizing Provider. cp 22:46 Kaleb Avila MD is Hospitalizing Provider. la1 23:13 Initiated transfer to [facility], spoke with Radha. 03/14 00:00 Pt accepted for transfer by Dr. Christo Gonzalez \\T\\ [id number] 03-13-22 per Radha Diane. wm 00:22 Inserted saline lock: 20 gauge in left hand, using aseptic technique. vc1 00:22 Inserted saline lock: 20 gauge in right forearm, using aseptic technique. vc1 00:50 No provider procedures requiring assistance completed. Patient transferred, IV remains vc1 in place. Administered Medications: 03/13 19:20 Drug: NS 0.9% 1000 ml Route: IV; Rate: 1 bolus; Site: right antecubital; kl 19:20 Drug: Ativan (LORazepam) 0.5 mg Route: IVP; Site: right antecubital; kl 19:55 Drug: Ativan (LORazepam) 1 mg Route: IVP; Site: right forearm; ll3 23:17 Follow up: Response: No adverse reaction ll3 20:41 Drug: NS 0.9% 1000 ml Route: IV; Rate: 1 bolus; Site: right antecubital; ll3 23:16 Follow up: Response: No adverse reaction; IV Status: Completed infusion; IV Intake: ll3 1000ml 21:18 CANCELLED (Physician Discretion): Ativan (LORazepam) 1 mg IVP once cp 21:31 Drug: Ativan (LORazepam) 2 mg Route: IVP; Site: right antecubital; ll3 23:17 Follow up: Response: No adverse reaction ll3 23:11 CANCELLED (Physician Discretion): Magnesium Sulfate 1 grams IVPB once over 1 hrs cp 23:31 Drug: Potassium Chloride 10 mEq Route: IV; Rate: calculated rate; Site: right ll3 antecubital; 23:31 Drug: Ativan (LORazepam) 1 mg Route: IVP; Site: right antecubital; ll3 03/14 00:22 Drug: Ativan (LORazepam) 1 mg Route: IVP; Site: right forearm; ll3 00:25 Drug: Magnesium Sulfate 2 grams Route: IVPB; Infused Over: 2 hrs; Site: right forearm; ll3 Medication: 03/13 22:55 VIS not applicable for this client. ll3 Intake: 23:16 IV: 1000ml; Total: 1000ml. ll3 Outcome: 22:29 Decision to Hospitalize by Provider. cp 03/14 00:26 ER care complete, transfer ordered by . cp 00:51 Transferred by [facility] to [facility], Transfer form completed. [facility] 00:51 Condition: good 01:18 Patient left the ED. ll3 Signatures: Joslyn Claudio RN RN kl Anderson, Corey, MD MD cha Attema, Lee, MANAGER LEGAL-C MANAGER LEGAL-Cla1 Tray Yee, GULSHAN PA cp Stacie Garcia am2 Eliecer Irizarry RN RN bp Garcia, Victoria RN RN vg1 Dre Claudio RN RN ll1 Kerri Riggs Lynsea, RN RN ll3 Nicol Mott RN RN vc1 Chau Arriaga9 Corrections: (The following items were deleted from the chart) 03/13 21:37 21:35 Placed nasal trumpet 28 Fr via right nare. ll3 ll3 23:16 23:04 Reassessment: ll3 ll3
--- NOTE | 2022-03-13 22:30 | EDPHYS ---
Physician Documentation [facility] Name: Darvin Cardenas Age: 36 yrs Sex: Male : 1985 Arrival Date: 03/13/2022 Time: 18:03 Bed 19 Private MD: ED Physician Tray Lynn HPI: 03/13 18:20 This 36 yrs old Male presents to ER via Ambulatory with complaints of ingestion cp olanzapine/mirtazapine. 18:20 The patient presents to the emergency department after a known overdose, that was cp intentional. 18:20 Context: Method: the patient has a confirmed or suspected ingestion, prescribed Prozac cp 45 pills, 45 pills of Remeron and 45 pills of Zyprexa 5mg, Time: 1 hour(s) ago. 18:20 Associated signs and symptoms: Pertinent positives: drinking of alcohol, Pertinent cp negatives: auditory hallucinations, decreased level of consciousness, diarrhea, visual hallucinations, vomiting. 18:20 Patient with recent history of attempted overdose that required hospitalization. cp Historical: - Allergies: 18:31 PENICILLINS; vg1 - PMHx: 18:31 Anxiety; vg1 - Immunization history:: unknown. - Social history:: Smoking status: Patient reports the use of cigarette tobacco products, Patient uses alcohol, street drugs, marijuana. ROS: 18:25 Constitutional: Negative for body aches, chills, fever, poor PO intake. cp 18:25 Eyes: Negative for injury, pain, redness, and discharge. cp 18:25 ENT: Negative for drainage from ear(s), ear pain, sore throat, difficulty swallowing, difficulty handling secretions. 18:25 Cardiovascular: Negative for chest pain. 18:25 Respiratory: Negative for cough, shortness of breath, wheezing. 18:25 Abdomen/GI: Positive for nausea, Negative for vomiting, diarrhea, constipation. 18:25 Neuro: Negative for altered mental status, seizure activity, weakness. 18:25 All other systems are negative. Exam: 18:30 Constitutional: The patient appears in no acute distress, alert, awake, cp non-diaphoretic, non-toxic, well developed, well nourished, smells of alcohol. 18:30 Head/Face: Normocephalic, atraumatic. cp 18:30 Eyes: Periorbital structures: appear normal, Pupils: constricted, bilaterally, Extraocular movements: intact throughout, Conjunctiva: normal, no exudate, no injection, Sclera: no appreciated abnormality, Lids and lashes: appear normal, bilaterally. 18:30 ENT: External ear(s): are unremarkable, Nose: is normal, Mouth: Lips: moist, Oral mucosa: pink and intact, moist, Posterior pharynx: Airway: no evidence of obstruction, patent, erythema, is not appreciated, exudate, is not appreciated. 18:30 Neck: ROM/movement: is normal, is supple, without pain, no range of motions limitations. 18:30 Chest/axilla: Inspection: normal. 18:30 Cardiovascular: Rate: tachycardic, Rhythm: regular, Edema: is not appreciated, JVD: is not appreciated. 18:30 Respiratory: the patient does not display signs of respiratory distress, Respirations: normal, no use of accessory muscles, no retractions, labored breathing, is not present, Breath sounds: are clear throughout, no decreased breath sounds, no stridor, no wheezing. 18:30 Abdomen/GI: Inspection: abdomen appears normal, Bowel sounds: active, all quadrants, Palpation: abdomen is soft and non-tender, in all quadrants. 18:30 Back: pain, is absent, ROM is normal. 18:30 Neuro: Orientation: to person, place \T\ time. Mentation: able to follow commands, slow to respond, Motor: moves all fours, strength is normal, Sensation: is normal. 19:50 ECG was reviewed by the Attending Physician. cp 22:15 ECG was reviewed by the Attending Physician. cp Vital Signs: 18:16 BP 143 / 98; Pulse 113; Resp 15; Temp 98.1; Pulse Ox 97% on R/A; Weight 90.72 kg; vg1 Height 6 ft. 4 in. (193.04 cm); Pain 0/10; 19:22 BP 125 / 75; Pulse 131; Resp 18; Pulse Ox 98% on R/A; kl 20:06 BP 128 / 58; Pulse 158; Resp 28; Pulse Ox 96% on R/A; ll3 21:37 BP 120 / 65; Pulse 130; Resp 24; Pulse Ox 96% on R/A; ll3 22:54 BP 142 / 70; Pulse 140; Resp 25; Temp 98.6(TE); Pulse Ox 96% on R/A; ll3 03/14 00:26 BP 139 / 59; Pulse 147; Resp 27; Pulse Ox 96% on R/A; ll3 03/13 18:16 Body Mass Index 24.34 (90.72 kg, 193.04 cm) vg1 MDM: 03/13 18:11 Patient medically screened. jl9 21:00 Data reviewed: vital signs, nurses notes, lab test result(s), EKG. 21:00 Test interpretation: by ED physician or midlevel provider: ECG. 21:30 Physician consultation: Maulik TINOCO was called at 21:30, after a discussion of the cp case, a recommendation for transfer for higher level of care is made, for ICU bed. 23:48 Physician consultation: was contacted at 23:48, regarding regarding transfer, to [facility]. patient's condition, accepting physician will be DR Christo Gonzalez. 03/13 18:14 Order name: Acetaminophen; Complete Time: 20:27 03/13 18:14 Order name: Basic Metabolic Panel; Complete Time: 20:27 03/13 20:27 Interpretation: Normal except: GLUC 119; GFR 80. 03/13 18:14 Order name: CBC with Diff; Complete Time: 19:43 03/13 20:27 Interpretation: Normal except: LYM% 45.8. 03/13 18:14 Order name: ETOH Level; Complete Time: 20:27 03/13 20:27 Interpretation: Abnormal: ETOH 209. 03/13 18:14 Order name: Hepatic Function; Complete Time: 20:27 03/13 22:24 Interpretation: Normal except: TP 8.6; GLOB 4.3; A/G 1.0. 03/13 18:14 Order name: PT-INR; Complete Time: 20:27 cp 03/13 18:14 Order name: Ptt, Activated; Complete Time: 20:27 cp 03/13 18:14 Order name: Salicylate; Complete Time: 19:43 03/13 18:14 Order name: Urine Drug Screen; Complete Time: 22:24 cp 03/13 18:54 Order name: SARS RAPID; Complete Time: 20:27 la1 03/13 23:47 Interpretation: Reviewed. 03/13 22:02 Order name: Magnesium; Complete Time: 22:34 la1 03/13 22:03 Order name: Urine Dipstick-Ancillary; Complete Time: 22:20 EDMS 03/13 18:14 Order name: EKG; Complete Time: 18:16 cp 03/13 18:14 Order name: EKG - Nurse/Tech; Complete Time: 22:03 cp 03/13 18:14 Order name: IV Saline Lock; Complete Time: 19:06 cp 03/13 18:14 Order name: Labs collected and sent; Complete Time: 19:06 cp 03/13 18:14 Order name: Suicide Precautions; Complete Time: 22:03 cp 03/13 18:14 Order name: Suicide Screening (Elfrida); Complete Time: 19:06 cp 03/13 18:14 Order name: Urine Dipstick-Ancillary (obtain specimen); Complete Time: 22:03 cp 03/13 18:14 Order name: IV; Complete Time: 19:06 cp 03/13 20:26 Order name: Celis; Complete Time: 21:46 cp 03/13 20:27 Order name: Restraint:Non-Violent; Complete Time: 20:38 cp 03/13 21:59 Order name: EKG - Nurse/Tech; Complete Time: 22:16 cp EC:50 Rate is 152 beats/min. Rhythm is regular. GA interval is shortened at 98 msec. QRS cp interval is normal. QT interval is normal. Interpreted by me. Reviewed by me. 22:15 Rate is 134 beats/min. Rhythm is regular. GA interval is shortened at 98 msec. QRS cp interval is normal at 328 msec. Interpreted by me. Reviewed by me. Administered Medications: 19:20 Drug: NS 0.9% 1000 ml Route: IV; Rate: 1 bolus; Site: right antecubital; kl 19:20 Drug: Ativan (LORazepam) 0.5 mg Route: IVP; Site: right antecubital; kl 19:55 Drug: Ativan (LORazepam) 1 mg Route: IVP; Site: right forearm; ll3 23:17 Follow up: Response: No adverse reaction ll3 20:41 Drug: NS 0.9% 1000 ml Route: IV; Rate: 1 bolus; Site: right antecubital; ll3 23:16 Follow up: Response: No adverse reaction; IV Status: Completed infusion; IV Intake: ll3 1000ml 21:18 CANCELLED (Physician Discretion): Ativan (LORazepam) 1 mg IVP once cp 21:31 Drug: Ativan (LORazepam) 2 mg Route: IVP; Site: right antecubital; ll3 23:17 Follow up: Response: No adverse reaction ll3 23:11 CANCELLED (Physician Discretion): Magnesium Sulfate 1 grams IVPB once over 1 hrs cp 23:31 Drug: Potassium Chloride 10 mEq Route: IV; Rate: calculated rate; Site: right ll3 antecubital; 23:31 Drug: Ativan (LORazepam) 1 mg Route: IVP; Site: right antecubital; ll3 03/14 00:22 Drug: Ativan (LORazepam) 1 mg Route: IVP; Site: right forearm; ll3 00:25 Drug: Magnesium Sulfate 2 grams Route: IVPB; Infused Over: 2 hrs; Site: right forearm; ll3 Disposition: 04:19 Co-signature as Attending Physician, Tray Lynn MD I agree with the assessment and ana maría plan of care. Disposition Summary: 03/14/22 00:26 Transfer Ordered Transfer Location: [facility] cp Reason: Higher level of care cp Condition: Stable(03/14/22 00:26) cp Problem: new(03/14/22 00:26) cp Symptoms: have improved(03/14/22 00:26) cp Accepting Physician: DR Christo Gonzalez(03/14/22 01:18) ll3 Diagnosis - Alcohol abuse with intoxication cp - Adverse effect of selective serotonin reuptake inhibitors, initial cp encounter(03/14/22 00:26) - Adverse effect of phenothiazine antipsychotics and neuroleptics, initial cp encounter(03/14/22 00:26) Forms: - Medication Reconciliation Form cp - SBAR form cp Signatures: Dispatcher [employer] EDJoslyn Vicente RN RN kl Webb, Martha RN Tray Swan MD MD cha Attema, Lee, TRAPPER ANIMAL-C TRAPPER ANIMAL-Cla1 Tray Yee PA PA cp Garcia, Victoria, RN RN vg1 Jerome Ramirez RN RN as6 Gucci Carlisle RN RN ll3 Nicol Mott RN RN Chau Callejas9 Corrections: (The following items were deleted from the chart) 03/13 21:18 20:51 Ativan (LORazepam) 1 mg IVP once ordered. as6 cp 22:46 22:29 Edvin Lozoya cp la1 22:49 22:29 Intensive Care Unit cp mw 22:49 22:29 cp mw 23:11 23:10 Magnesium Sulfate 1 grams IVPB once over 1 hrs ordered. cp cp 03/14 00:24 03/13 22:29 Inpatient Admission cp cp 03/14 00:24 03/13 22:29 Serious cp cp 03/14 00:24 03/13 22:29 new cp cp 03/14 22:29 have improved cp cp 03/14 00:24 03/13 22:29 Standard cp cp 03/14 00:03/13 22:29 Adverse effect of phenothiazine antipsychotics and neuroleptics, initial cp encounter cp 03/14 00:03/13 22:29 Adverse effect of selective serotonin reuptake inhibitors, initial cp encounter cp 03/14 00:24 03/13 22:46 Kaleb Avila la1 cp 03/14 00:24 03/13 22:49 [facility] ER HOLD mw cp 03/14 00:24 03/13 22:49 ERHOLD- mw cp 03/14 01:18 00:26 DR Christo Gonzalez cp ll3 02:46 03/13 23:48 Physician consultation: was contacted at 23:48, regarding regarding cp transfer, to [facility]. patient's condition, accepting physician will be alexis FELICIANO
[2022-03-13] MEDS ORDERED: Magnesium Sulfate 2gm IVPB 2 G/50 ML BAG IV ONE (23:25)
[2022-03-13] MEDS ORDERED: KCL 20 MEQ/100 mL IVPB 100 ML IV ONE (23:25)
[2022-03-14] MEDS ORDERED: NA CHLORIDE 0.9% 500 ML ONE (00:15)
[2022-03-14 02:27] VITALS: O2SAT 96
[2022-03-14 02:30] VITALS: TEMP 98.6
[2022-03-14 02:31] VITALS: BP 139/59
--- NOTE | 2022-03-14 13:57 | EKG ---
Test Date: 2022-03-13 Test Time: 22:09:10 Fractionation Supervisor: JAX MEASUREMENT RESULTS: Intervals: Rate: 134 AR: 98 QRSD: 86 QT: 328 QTc: 489 [place]: P: AR: 98 QRS: 125 T: 138 INTERPRETIVE STATEMENTS: Sinus tachycardia with short AR Left posterior fascicular block Nonspecific ST and T wave abnormality Abnormal ECG Compared to ECG 03/13/2022 19:44:34 Left posterior fascicular block now present Ventricular premature complex(es) no longer present ST (T wave) deviation still present Electronically Signed On 03-14-22 13:56:27 CDT by Armando Gutierrez
--- NOTE | 2022-03-14 13:57 | EKG ---
Test Date: 2022-03-13 Test Time: 19:44:34 Information Systems Planner: MEASUREMENT RESULTS: Intervals: Rate: 152 DE: 98 QRSD: 82 QT: 282 QTc: 448 [place]: P: 66 DE: 98 QRS: 76 T: 65 INTERPRETIVE STATEMENTS: Sinus tachycardia with short DE with occasional premature ventricular complexes Nonspecific ST abnormality Abnormal ECG Compared to ECG 12/17/2018 12:44:59 Ventricular premature complex(es) now present Short DE interval now present ST (T wave) deviation now present Sinus rhythm no longer present Electronically Signed On 03-14-22 13:57:06 CDT by Armando Gutierrez
== END 2022-03-14 01:18 | disposition short-term general hospital (02) ==
LOC: ER 18:00
DX: F10.129 Alcohol abuse with intoxication, unspecified (principal); T43.225A Adverse effect of selective serotonin reuptake inhibitors, initial encounter; T43.3X5A Adverse effect of phenothiazine antipsychotics and neuroleptics, initial encounter; Z20.822 Contact with and (suspected) exposure to COVID-19; Z72.0 Tobacco use
CPT/HCPCS: 36415; 51702; 80048; 80076; 80307; 80320; 80329; 81003; 83735; 85025; 85610; 85730; 87811; 93005; 99285; J3475; J3480; J7030; J7040